=== PATIENT | male | born 1990 | race African-American/Black ===

== ENCOUNTER 2017-10-01 14:26 | Emergency (ER) | payer BC, OTHER ==
[2017-10-01 15:03] VITALS: BP 150/81
--- NOTE | 2017-10-01 15:24 | UC ---
Throat Pain/Nasal Gelacio HPI - HPI Summary HPI Summary: 27 y/o female presents to the urgent care c/o sore throat since last night. Pt reports pain with swallowing is 8/10. He has not taking anything to alleviate symptoms. Pt denies fever, SOB, chest pain, abdominal pain, N/V/D, or rash. - History of Current Complaint Chief Complaint: UCRespiratory Stated Complaint: SORE THROAT Time Seen by Provider: 10/01/17 15:21 Hx Obtained From: Patient Onset/Duration: Gradual Onset, Lasting Days - 1 day, Still Present Severity: Moderate Pain Intensity: 8 Pain Scale Used: 0-10 Numeric Cough: None Associated Signs & Symptoms: Positive: Dysphagia, Nasal Discharge - clear nasal discharge. Negative: Fever - Epiglottits Risk Factors Epiglottis Risk Factors: Negative - Allergies/Home Medications Allergies/Adverse Reactions: Allergies Allergy/AdvReac Type Severity Reaction Status Date / Time No Known Allergies Allergy Verified 09/23/16 06:50 PMH/Surg Hx/FS Hx/Imm Hx Previously Healthy: Yes - Pt dneies PMHX - Surgical History Surgical History: Yes Surgery Procedure, Year, and Place: APPENDIX - Family History Known Family History: Positive: None, Hypertension, Diabetes Negative: Cardiac Disease Family History: R& n/C - Social History Occupation: Employed Full-time Lives: With Family Alcohol Use: Weekly Substance Use Type: None Smoking Status (MU): Light Every Day Tobacco Smoker Type: Cigarettes Have You Smoked in the Last Year: Yes Review of Systems Constitutional: Negative Skin: Negative Eyes: Negative ENT: Sore Throat, Nasal Discharge - clear nasal discharge Respiratory: Negative Cardiovascular: Negative Gastrointestinal: Negative Genitourinary: Negative Motor: Negative Neurovascular: Negative Musculoskeletal: Negative Neurological: Negative Psychological: Negative Is Patient Immunocompromised?: No All Other Systems Reviewed And Are Negative: Yes Physical Exam Triage Information Reviewed: Yes Vital Signs: Initial Vital Signs Temp 99.3 F 10/01/17 14:59 Pulse 82 10/01/17 14:59 Resp 18 10/01/17 14:59 BP 150/81 10/01/17 14:59 Pulse Ox 100 10/01/17 14:59 - Additional Comments VITAL SIGNS: Reviewed. GENERAL: Patient is a well developed and nourished male who is sitting comfortable in the examining table. Patient is not in any acute respiratory distress. HEAD AND FACE: No signs of trauma. No ecchymosis, hematomas or skull depressions. No sinus tenderness. EYES: PERRLA, EOMI x 2, No injected conjunctiva, no nystagmus. No photophobia. EARS: Hearing grossly intact. Ear canals and tympanic membranes are within normal limits. MOUTH: Positive pharynx with erythema, no exudates, mild palatal petechiae. No B/L tonsillar enlargement. Uvula in midline. NECK: Supple, trachea is midline, Positive anterior cervical lymphadenopathy, no JVD, no carotid bruit, no c-spine tenderness, neck with full ROM. No meningeal signs, no Kernig's or brudzinskis signs. CHEST: Symmetric, no tenderness at palpation LUNGS: Clear to auscultation bilaterally. No wheezing or crackles. CVS: Regular rate and rhythm, S1 and S2 present, no murmurs or gallops appreciated. ABDOMEN: Soft, non-tender. No signs of distention. No rebound no guarding, and no masses palpated. Bowel sounds are normal. EXTREMITIES: FROM in all major joints, no edema, no cyanosis or clubbing. NEURO: Alert and oriented x 3. No acute neurological deficits. Speech is normal and follows commands. SKIN: Dry and warm Throat Pain/Nasal Course/Dx - Course Course Of Treatment: 27 y/o female presents to the urgent care c/o sore throat since last night. Pt reports pain with swallowing is 8/10. He has not taking anything to alleviate symptoms. Pt denies fever, SOB, chest pain, abdominal pain , N/V/D, or rash. Hx obtained. P twith pharyngitis on examination. Rapid strep ordered, result: negative. Viral pharyngitis.Pt Rx ibuprofen PO to alleviates symptoms of pain and swelling. Advised on hand washing to avoid spreading. Pt's BP is elevated today advised to decrease salt in diet, monitor BP and f/u with PCP for further management.Pt advised to rest, eat well and avoid strenuous exercise. If symptoms do not improve or worsen advised to return to the urgent care or f/u with her PCP for further evaluation and treatment. Pt understood and agreed - Differential Dx/Diagnosis Differential Diagnosis/HQI/PQRI: Influenza, Laryngitis, Mononucleosis, Otitis Media, Peritonsillar Abscess, Pharyngitis, Tonsillitis, URI, Other - uvilitis Provider Diagnoses: 1- Viral pharyngitis. 2-Elevated BP w/o Hx of HTN Discharge - Discharge Plan Condition: Stable Disposition: HOME Prescriptions: Ibuprofen TAB* [Motrin TAB* 800 MG] 800 mg PO Q6H PRN #20 tab PRN Reason: Pain Patient Education Materials: Pharyngitis (ED), Low Sodium Diet (ED) Referrals: [facility] [place] [facility] [Outside] - If Needed Additional Instructions: 1-Please take ibuprofen PO q6-8hrs prn as instructed after meals to alleviate pain and swelling. Increase fluid intake, eat well, rest and avoid strenuous exercise 2-If symptoms do not improve or worsen please return to the urgent care or f/u with your PCP for further evaluation and treatment. 3- Your BP is elevated today please decrease salt in your diet, monitor BP and if it continues to be elevated f/u with your PVP for further management
== END 2017-10-01 15:55 | disposition home or self-care (01) ==
LOC: UCEAST 14:26
DX: J02.9 Acute pharyngitis, unspecified (principal); R03.0 Elevated blood-pressure reading, without diagnosis of hypertension; F17.210 Nicotine dependence, cigarettes, uncomplicated
CPT/HCPCS: 87651; 99212; G0463

== ENCOUNTER 2018-05-18 21:50 | Emergency (ER) | payer BC, OTHER ==
[2018-05-18] MEDS ORDERED: NS 0.9% 1000 ML* 2,000 ML IV ONE (22:02)
[2018-05-18] MEDS ORDERED: fentaNYL* 50 MCG/ML 2 ML VIAL (100 MCG VIAL) IV ONE (22:02)
[2018-05-18 22:23] LABS: ABS Basophils 0.1 10^3/ul (0-0.2); ABS Eosinophils 0 10^3/ul (0-0.6); ABS Lymphocytes 2.2 10^3/ul (1.0-4.8); ABS Monocytes 0.5 10^3/ul (0-0.8); ABS Neutrophils 3.9 10^3/ul (1.5-7.7); ABS Nucleated RBC 0 10^3/ul; Eosinophil % 0.7 % (0-6); Hematocrit 45 % (42-52); Hemoglobin 15.3 g/dl (14.0-18.0); Lymphocyte % 32.8 % (25-47); Mean Corpuscular HGB Conc 34 g/dl (31-36); Mean Corpuscular Hemoglobin 30 pg (27-31); Mean Corpuscular Volume 87 fL (80-94); Mean Platelet Volume 8.1 um3 (7.4-10.4); Nucleated Red Blood Cells % 0; Platelet Count 260 10^3/ul (150-450); Red Blood Count 5.12 10^6/ul (4.00-5.40); Red Cell Distribution Width 14 % (10.5-15); White Blood Count 6.7 10^3/ul (3.5-10.8)
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
[2018-05-18] MEDS ORDERED: fentaNYL* 50 MCG/ML 2 ML VIAL (100 MCG VIAL) IV SLOW PU ONE ×2 (23:00→23:54)
[2018-05-18] MEDS ORDERED: Ketorolac INJ* 30 MG/ML 1 ML VIAL IV PUSH ONE (23:41)
[2018-05-18] MEDS ORDERED: diPHENhydraMINE IV* 50 MG/ML 1 ml VIAL (BENADRYL) ONE (23:45)
[2018-05-18] MEDS ORDERED: fentaNYL* 50 MCG/ML 2 ML VIAL (100 MCG VIAL) ONE (23:53)
[2018-05-19] MEDS ORDERED: Morphine ORAL.SOLN 10 mg* 2 MG/ML UDC 5 ml PO ONE (00:17)
[2018-05-19 01:48] VITALS: BP 133/70
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
== END 2018-05-19 01:45 | disposition home or self-care (01) ==
LOC: ED 21:50
DX: S40.812A Abrasion of left upper arm, initial encounter (principal); S40.811A Abrasion of right upper arm, initial encounter; S70.212A Abrasion, left hip, initial encounter; S70.211A Abrasion, right hip, initial encounter; S80.212A Abrasion, left knee, initial encounter; S80.211A Abrasion, right knee, initial encounter; S70.01XA Contusion of right hip, initial encounter; V28.4XXA Motorcycle driver injured in noncollision transport accident in traffic accident, initial encounter; Y93.89 Activity, other specified; Y92.410 Unspecified street and highway as the place of occurrence of the external cause; F17.210 Nicotine dependence, cigarettes, uncomplicated
CPT/HCPCS: 36415; 80053; 85025; 96374; 96375; 96376; 99283; A9270-GY; J1200; J1885; J3010

== ENCOUNTER 2019-07-29 07:25 | Emergency (ER) | payer SELFPAY ==
[2019-07-29 07:40] VITALS: BP 145/87
--- NOTE | 2019-07-29 07:47 | UC ---
Cardiac HPI - HPI Summary HPI Summary: Mr. Smith has had episodes since last evening of sudden episodes of a feeling of chest spasm. His he not accompanied by any other associated symptoms such as nausea or shortness of breath or diaphoresis. He cannot name any exacerbating or relieving conditions stating that they just come randomly. - History of Current Complaint Stated Complaint: CHEST PAIN Time Seen by Provider: 07/29/19 07:26 Hx Obtained From: Patient Onset/Duration: Sudden Onset Timing: Intermittent Episodes Lasting: - seconds Initial Severity: Mild Current Severity: Mild Chest Pain Location: Mid Sternal Character: Fluttering Aggravating Factor(s): Nothing Alleviating Factor(s): Nothing Associated Signs & Symptoms: Positive: Negative - Allergy/Home Medications Allergies/Adverse Reactions: Allergies Allergy/AdvReac Type Severity Reaction Status Date / Time No Known Allergies Allergy Verified 07/29/19 07:34 Home Medications: Home Medications NK [No Home Medications Reported] 07/29/19 [History Confirmed 07/29/19] PMH/Surg Hx/FS Hx/Imm Hx Previously Healthy: Yes - Surgical History Surgical History: Yes Surgery Procedure, Year, and Place: APPENDIX - Family History Known Family History: Positive: None, Hypertension, Diabetes Negative: Cardiac Disease Family History: R& n/C - Social History Alcohol Use: Weekly Substance Use Type: None Smoking Status (MU): Light Every Day Tobacco Smoker Type: Cigarettes Have You Smoked in the Last Year: Yes Review of Systems All Other Systems Reviewed And Are Negative: Yes Physical Exam - Summary Physical Exam Summary: Is nontoxic in appearance with stable vital signs. Triage Information Reviewed: Yes Appearance: Well-Appearing Vital Signs Reviewed: Yes ENT: Positive: Normal ENT inspection Neck exam: Normal Respiratory Exam: Normal Respiratory: Positive: Chest non-tender, Lungs clear, Normal breath sounds, No respiratory distress Cardiovascular: Positive: RRR, No Murmur, Pulses Normal, Brisk Capillary Refill Abdomen Description: Positive: Nontender Musculoskeletal Exam: Normal Diagnostics - EKG Cardiac Rate: NL - Slow Cardiac Rhythm: Sinus: Normal Ectopy: None ST Segment: Normal - Nondiagnostic inferior changes, Early repole EKG Comparison: No Significant Change - Assessment/Plan Course Of Treatment: He seems to have palpitations that are mild. I don't really have anything to offer him here as we could not catch her EKG. I recommended that they go to the emergency department for monitoring and lab work. They agreed to do so. - Clinical Impression Provider Diagnosis: Palpitations Discharge ED - Sign-Out/Discharge Documenting (check all that apply): Patient Departure All imaging exams completed and their final reports reviewed: No Studies - Discharge Plan Condition: Stable Disposition: HOME-RECOMMEND TO ED Patient Education Materials: Heart Palpitations (ED) Referrals: No Primary Care Phys,NOPCP [Primary Care Provider] - - Billing Disposition and Condition Condition: STABLE Disposition: Home-Recommend to ED
== END 2019-07-29 07:59 | disposition home health service (06) ==
LOC: UCEAST 07:25
DX: R00.2 Palpitations (principal); R07.9 Chest pain, unspecified; F17.210 Nicotine dependence, cigarettes, uncomplicated
CPT/HCPCS: 93005; 99212; G0463